=== PATIENT | female | born 1965 | race Two or more races ===

== ENCOUNTER 2019-06-05 15:25 | Emergency (ER) | payer SELFPAY ==
[~2019-06-05] VITALS: Ht 162.6 cm; Wt 100.0 kg
[2019-06-05] MEDS ORDERED: KETOROLAC 30MG/ML VIAL IM ONE (16:30)
[2019-06-05] MEDS ORDERED: MORPHINE SULFATE 10 MG/ML CPJ IM ONE (16:30)
[2019-06-05 19:50] VITALS: BP 133/75
== END 2019-06-06 02:31 | disposition home or self-care (01) ==
LOC: ER 15:25
DX: S30.1XXA Contusion of abdominal wall, initial encounter (principal); S09.8XXA Other specified injuries of head, initial encounter; E11.9 Type 2 diabetes mellitus without complications; I10 Essential (primary) hypertension; E78.00 Pure hypercholesterolemia, unspecified; V43.62XA Car passenger injured in collision with other type car in traffic accident, initial encounter; Y93.89 Activity, other specified; Y92.89 Other specified places as the place of occurrence of the external cause; Y99.8 Other external cause status
CPT/HCPCS: 70450; 71045; 74176; 93005; 96372; 99284; J1885; J2270